=== PATIENT | male | born 1955 ===

== ENCOUNTER → 2020-04-18 | Outpatient (CLI) | payer MEDICARE | LOC: LAB 10:18 → LAB SHORT 10:18 | DX: D48.5 Neoplasm of uncertain behavior of skin (principal); L02.91 Cutaneous abscess, unspecified; L08.9 Local infection of the skin and subcutaneous tissue, unspecified; B35.3 Tinea pedis; L91.8 Other hypertrophic disorders of the skin; L82.0 Inflamed seborrheic keratosis | CPT/HCPCS: 87070; 87205 ==